=== PATIENT | female | born 1940 | race Caucasian/White ===

== ENCOUNTER 2016-12-09 08:53 | Emergency (ER) | payer OTHER ==
--- NOTE | ~2016-12-09 | CR151 ---
[facility] A Service of [facility] & [facility] & [facility] RADIOLOGY TEXT RESULTS PATIENT: SCOTT ARMENDARIZ LOCATION: [facility] : 42 UNIT #: [id number] AGE: [address]: Cherelle Betancourt SEX: F ORDER DR: [id number] [facility] [address] [place], [place] [address] [id number] E MR#: [id number] Acc #: [id number] NAME: SCOTT ARMENDARIZ : 1940 SEX: F STUDY DATE/TIME: 12/09/2016 9:41 UNIT: [facility] ROOM: STUDY DESCRIPTION: CR Hip Min 2 Views Rt Attending Physician: Cherelle Betancourt P.A.-C. Ordering Physician: Cherelle Betancourt P.A.-C. Primary Care Physician: Skyler Denise M.D. MEDICAL IMAGING REPORT This report is preliminary unless electronic signature is present EXAM Right hip, 2 views. INDICATIONS Right hip pain today after falling. COMPARISON No comparisons. FINDINGS Osteopenia. 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 There is no obvious hip fracture. No dislocation. Calcified uterine fibroid. IMPRESSION Degenerative changes. No evidence for hip fracture. Dictated by... Kamaljit Arriaza M.D. THIS IS AN ELECTRONICALLY VERIFIED REPORT Kamaljit Arriaza M.D. at 12/09/2016 3:21 PM LUTHER/antoni TD: 12/09/2016 12:50 JOB #: [id number] MEDICAL IMAGING REPORT Page 1 of 1 COPY
--- NOTE | ~2016-12-09 | CR172 ---
[facility] A Service of [facility] & [facility] RADIOLOGY TEXT RESULTS PATIENT: SCOTT ARMENDARIZ LOCATION: [facility] : 42 UNIT #: [id number] AGE: [address]: Cherelle Betancourt SEX: F ORDER DR: [id number] [facility] [address] [place] [address] [place], [place] [address] [id number] E MR#: [id number] Acc #: [id number] NAME: SCOTT ARMENDARIZ : 1940 SEX: F STUDY DATE/TIME: 12/09/2016 9:47 UNIT: [facility] ROOM: STUDY DESCRIPTION: CR Knee 3 Views Lt Attending Physician: Cherelle Betancourt P.A.-C. Ordering Physician: Cherelle Betancourt P.A.-C. Primary Care Physician: Skyler Denise M.D. MEDICAL IMAGING REPORT This report is preliminary unless electronic signature is present EXAM Left knee 3 views INDICATIONS Left knee pain today after falling. COMPARISON No comparisons. FINDINGS Osteopenia. Significant tricompartmental degenerative change greatest in the medial and patellofemoral compartments. No evidence for joint effusion. No evidence for fracture. IMPRESSION Significant degenerative change but no evidence for any acute abnormality. Dictated by... Kamaljit Arriaza M.D. THIS IS AN ELECTRONICALLY VERIFIED REPORT Kamaljit Arriaza M.D. at 12/09/2016 3:21 PM ARS/to TD: 12/09/2016 12:58 JOB #: [id number] MEDICAL IMAGING REPORT Page 1 of 1 COPY
[~2016-12-09 08:53] MED LIST: ALLERGY10 M2 PO; AMOXICILLIN500 M1 PO; ASPIR-TRIN325 MG PO; CYMBALTA PO; DICYCLOMINE HCL20 MG PO; INSPRA25 MG PO; KLONOPIN0.5 MG PO; MEDROL DOSEPAK4 MG PO; MOTION RELIEF25 MG PO; NEXIUM PO; NORVASC10 MG PO; NORVASC2.5 MG PO; PAIN RELIEVER500 M6 PO; PROAIR HFA8.5 GM IH; TOPROL XL PO; TOPROL XL200 MG PO
== END 2016-12-09 10:35 | disposition home or self-care (01) ==
LOC: CED 08:53
DX: S76.011A Strain of muscle, fascia and tendon of right hip, initial encounter (principal); S86.812A Strain of other muscle(s) and tendon(s) at lower leg level, left leg, initial encounter; F32.9 Major depressive disorder, single episode, unspecified; F41.9 Anxiety disorder, unspecified; Z88.2 Allergy status to sulfonamides; Z88.5 Allergy status to narcotic agent; W07.XXXA Fall from chair, initial encounter; Y92.009 Unspecified place in unspecified non-institutional (private) residence as the place of occurrence of the external cause
CPT/HCPCS: 73502; 73562; 99283

== ENCOUNTER → 2017-01-28 | Outpatient (CLI) | payer OTHER ==
--- NOTE | ~2017-01-28 | MR113 ---
[facility] A Service of [facility] & [facility] RADIOLOGY TEXT RESULTS PATIENT: SCOTT ARMENDARIZ LOCATION: [facility] : 42 UNIT #: [id number] AGE: [address]: DEBORAH WARNER APRN SEX: F ORDER DR: [id number] [facility] [address] [place], [place] [address] [id number] O MR#: [id number] Acc #: [id number] NAME: SCOTT ARMENDARIZ : 1940 SEX: F STUDY DATE/TIME: 01/28/2017 15:00 UNIT: [facility] ROOM: STUDY DESCRIPTION: MR Lumbar Wo Contrast Attending Physician: Ryanne Davey Referring Physician: Ryanne Davey Ordering Physician: Physician Non-Staff Primary Care Physician: Ryanne Davey MRI CENTER REPORT This report is preliminary unless electronic signature is present. EXAM MRI of the lumbar spine without contrast, 01/28/2017 COMPARISON None HISTORY Patient has fallen several times, most recent fall was six weeks ago in her kitchen. Low back pain and right hip pain. The patient noticed blood after using the toilet paper post urination 2-3 weeks ago. FINDINGS Multi-sequence, multiplanar imaging of the lumbar spine was obtained without contrast. Vertebral body heights and alignment are preserved. Degenerative disc disease is seen at multiple levels. Conus terminates at L1-2. Signal of conus and cauda equina are within normal limits. Pre and paravertebral soft tissues do not demonstrate any significant abnormality. There is leftward curvature of the lumbar spine with the apex at L3-4. Gabriel angle measured from the superior endplate of L2 to the inferior endplate of L5 is 10 degrees. L1-2, L2-3: Mild disc bulge which is asymmetrically prominent in the left foraminal to extraforaminal region with mild inferior left L2-3 neural foraminal encroachment. It is likely related to the leftward spine curvature. No canal stenosis. Mild bilateral facet changes. L3-4: Concentric disc bulge with superimposed right subarticular moderate protrusion/extrusion with mild to moderate right lateral recess stenosis and impingement on right L4 nerve root. Moderate right and mild left lateral recess stenosis are noted with mild transverse canal stenosis. Mild inferior bilateral neural foraminal encroachment is seen. [facility]. [facility] A Service of [facility] & [facility] RADIOLOGY TEXT RESULTS PATIENT: SCOTT ARMENDARIZ LOCATION: [facility] : 42 UNIT #: [id number] AGE: [address]: DEBORAH WARNER APRN SEX: F ORDER DR: L4-5: Moderate disc bulge with mild to moderate right and severe left facet hypertrophic changes are noted with mild to moderate canal stenosis. Mild inferior bilateral neural foraminal narrowing are present. No significant lateral recess stenosis. L5-S1: Moderate disc bulge with mild to moderate left facet hypertrophic change and mild bilateral neural foraminal narrowing. No canal stenosis. IMPRESSION 1. Degenerative changes are noted at multiple levels, relatively worse at L3-4 and L4-5. 2. Right subarticular moderate protrusion/extrusion is noted at L3-4 impinging on the right lateral recess and L4 nerve root. Correlate with appropriate radiculopathy. 3. Canal stenosis at L3-4 and L4-5. 4. Levoscoliosis of the lumbar spine with the apex at L3-4. Gabriel angle measured from the superior endplate of L2 to the inferior endplate of L5 is 10 degrees. Dictated by... Jamie Zuniga M.D. THIS IS AN ELECTRONICALLY VERIFIED REPORT Jamie Zuniga M.D. at 01/31/2017 4:15 PM CPR/luciano TD: 01/31/2017 11:21 JOB #: [id number] MRI CENTER REPORT Page 1 of 1 COPY
--- NOTE | ~2017-01-28 | MR84 ---
[facility] A Service of [facility] & [facility] RADIOLOGY TEXT RESULTS PATIENT: SCOTT ARMENDARIZ LOCATION: [facility] : 42 UNIT #: [id number] AGE: [address]: DEBORAH WARNER APRN SEX: F ORDER DR: [id number] [facility] [address] [place], [place] [address] [id number] O MR#: [id number] Acc #: [id number] NAME: SCOTT ARMENDARIZ : 1940 SEX: F STUDY DATE/TIME: 01/28/2017 15:21 UNIT: [facility] ROOM: STUDY DESCRIPTION: MR Hip Wo Contrast Rt Attending Physician: Ryanne Davey Referring Physician: Ryanne Davey Ordering Physician: Physician Non-Staff Primary Care Physician: Ryanne Davey MRI CENTER REPORT This report is preliminary unless electronic signature is present. EXAM MRI of the right hip and pelvis HISTORY 76-year-old female has fallen several times most recent fall 6 weeks ago. Complains of low back pain, right hip pain. COMPARISON MRI pelvis 01/28/2017, MRI lumbar spine 01/28/2017 and right hip films 12/09/2016. FINDINGS Multiplanar multiecho imaging was performed of the right hip and pelvis utilizing a high field magnet and dedicated protocol. No findings to suggest an occult fracture or bone contusion. Detailed imaging of the hips demonstrates a physiologic amount joint fluid. Mild arthritic changes are noted within both hips with mild chondromalacia but no areas of high-grade chondromalacia identified. No paralabral cyst. Pelvic and proximal thigh musculature unremarkable. Benign-appearing bone lesion seen within the left proximal femur measuring about 2.1 cm compatible with a enchondroma. Minimal inflammation. Minimal inflammation overlying the right greater trochanter. No evidence of tendinopathy or tear. Internal pelvic structures remarkable for leiomyomatous changes of the uterus. A small right adnexal lesion suggests a cyst. This measures up to about 1.8 cm. Current recommendations in a postmenopausal woman is for a yearly followup of these suspected benign cysts to confirm stability. Again this most likely represents a physiologic ovarian cyst or par ovarian cyst. The structure to the right of midline within the uterus is compatible a calcified uterine fibroid. The other focus of intermediate to high T2 signal within the endometrium may represent endometrial hyperplasia and as reported in the patient's pelvic MRI further evaluation may be warranted. Potentially this could just represent a fibroid as well. Further [facility]. [facility] A Service of [facility] & [facility] RADIOLOGY TEXT RESULTS PATIENT: SCOTT ARMENDARIZ LOCATION: [facility] : 42 UNIT #: [id number] AGE: [address]: DEBORAH WARNER APRN SEX: F ORDER DR: evaluation with pelvic ultrasound may be of benefit. IMPRESSION 1. Minimal arthritic changes of both hips. No active synovitis and no findings to suggest occult fracture. 2. Mild inflammation over the right greater trochanter but no significant tendinopathy or trochanteric bursitis. 3. Suspected endometrial hyperplasia within the uterine cavity. Please see separate MRI of the pelvis report for details. Additionally noted is a small uterine fibroid which appears calcified. 4. 1.8 cm cystic appearing right adnexal lesion probably represents a physiologic ovarian cyst. Current recommendations in a post menopausal patient is for followup ultrasound on a yearly basis to confirm stability. Dictated by... Hortencia Arriaza M.D. THIS IS AN ELECTRONICALLY VERIFIED REPORT Hortencia Arriaza M.D. at 01/31/2017 4:45 PM Elsie TD: 01/31/2017 11:01 JOB #: [id number] MRI CENTER REPORT Page 1 of 1 COPY
--- NOTE | ~2017-01-28 | MR151 ---
[facility] A Service of [facility] RADIOLOGY TEXT RESULTS PATIENT: SCOTT ARMENDARIZ LOCATION: [facility] : 42 UNIT #: [id number] AGE: [address]: DEBORAH WARNER APRN SEX: F ORDER DR: [id number] [facility] [address] [place], [place] [address] [id number] O MR#: [id number] Acc #: [id number] NAME: SCOTT ARMENDARIZ : 1940 SEX: F STUDY DATE/TIME: 01/28/2017 15:56 UNIT: [facility] ROOM: STUDY DESCRIPTION: MR Pelvis WWo Contrast Attending Physician: Ryanne Davey Referring Physician: Ryanne Davey Ordering Physician: Physician Non-Staff Primary Care Physician: Ryanne Davey MRI CENTER REPORT This report is preliminary unless electronic signature is present. EXAM MR pelvis INDICATIONS Postmenopausal vaginal bleeding. TECHNIQUE Multiplanar MRI of the pelvis with and without contrast (20 mL MultiHance IV contrast). COMPARISON None available. FINDINGS The uterus is anteverted measuring 6.6 x 3.9 x 6.5 cm. There is a benign fibroid along the right lateral uterine body measuring 3.1 x 2.5 x 2.7 cm. This is a myometrial fibroid, however there is a small submucosal component. There is globular configuration to the thickened endometrium. The endometrium has a somewhat mass-like appearance measuring 3.6 x 2.6 x 3.0 cm. The endometrium shows fairly homogeneous enhancement without discrete mass. The left ovary is either surgically absent or atrophic. There is a 2.2 cm follicular cyst in the right ovary. Given the postmenopausal age, this can be followed. No pathologically enlarged pelvic or inguinal lymph nodes. The bladder is unremarkable. Pelvic vasculature is patent. Please refer to the separately dictated report for details on the osseous structures of the pelvis. IMPRESSION [facility] A Service of [facility] & [facility] RADIOLOGY TEXT RESULTS PATIENT: SCOTT ARMENDARIZ LOCATION: [facility] : 42 UNIT #: [id number] AGE: [address]: DEBORAH WARNER APRN SEX: F ORDER DR: 1. Abnormal mass-like thickening of the endometrium. This probably represents endometrial hyperplasia, however, endometrial polyp or endometrial carcinoma are in the differential consideration. There is no aggressive or malignant appearance identified on this study. 2. No evidence of adenopathy in the pelvis. 3. Benign myometrial fibroid measuring up to 3.1 cm. 4. 2.2 cm cyst in the right ovary is likely a benign follicular cyst, however, given the patient's postmenopausal age, this can be followed. Consider pelvic ultrasound in 6 months. 5. Not mentioned above, there is a small umbilical hernia. Dictated by... John Mendoza M.D. THIS IS AN ELECTRONICALLY VERIFIED REPORT John Mendoza M.D. at 01/30/2017 5:16 PM RACHEL/terrie TD: 01/30/2017 16:44 JOB #: [id number] MRI CENTER REPORT Page 1 of 1 COPY
[2017-01-28 15:05] LABS: POC - CREATININE 0.99 mg/dL (0.44-1.03)
== END | disposition home or self-care (01) ==
LOC: CMRI 13:40
PROVIDERS: Nurse Practitioner Family
DX: N95.0 Postmenopausal bleeding (principal); M51.16 Intervertebral disc disorders with radiculopathy, lumbar region; M25.551 Pain in right hip; D25.9 Leiomyoma of uterus, unspecified; N83.201 Unspecified ovarian cyst, right side; K42.9 Umbilical hernia without obstruction or gangrene; M48.06 Spinal stenosis, lumbar region; M41.9 Scoliosis, unspecified; M47.26 Other spondylosis with radiculopathy, lumbar region; R93.8 Abnormal findings on diagnostic imaging of other specified body structures; R93.7 Abnormal findings on diagnostic imaging of other parts of musculoskeletal system
CPT/HCPCS: 72148; 72197; 73721; 82565; A9577